=== PATIENT | male | born 1955 | race Caucasian/White ===

== ENCOUNTER 2018-08-31 10:08 | Day surgery (SDC) | payer MEDICARE, MEDICAID ==
[2018-08-31] VITALS (11 sets, daily range): BP systolic 110–130; BP diastolic 70–95
[~2018-08-31] VITALS: Ht 180.3 cm; Wt 160.2 kg
[~2018-08-31 10:08] MED LIST: APIX5TAB3 PO
[2018-08-31] MEDS ORDERED: MIDAZolam 5mg/ml 2ml vial IV ONE (10:25)
[2018-08-31] MEDS ORDERED: normal saline 1000ml 1,000 ML IV SCH (10:25)
[2018-08-31] MEDS ORDERED: fentaNYL/PF 50MCG/1 ML 2ML syringe IV ONE (10:25)
[2018-08-31 10:47] LABS: BASOPHILS % (AUTO) 0.2 % (0-1); EOSINOPHILS # (AUTO) 0.3 X10'3 (0-0.9); EOSINOPHILS % (AUTO) 4.3 % (0-6); HEMATOCRIT 41.5 % (42.0-52.0); HEMOGLOBIN 13.2 g/dl (14.0-17.9); LYMPHOCYTES # (AUTO) 1.1 X10'3 (1.1-4.8); LYMPHOCYTES % (AUTO) 15.6 % (21-51); MEAN CORPUSCULAR HEMOGLOBIN 27.4 PG (27.0-31.0); MEAN CORPUSCULAR HGB CONC 31.7 g/dL (33.0-36.5); MEAN CORPUSCULAR VOLUME 86.6 FL (78-98); MONOCYTES # (AUTO) 0.6 X10'3 (0-0.9); NEUTROPHILS % (AUTO) 71.9 % (42-75); PLATELET COUNT 195 X10'3 (140-440); RED CELL DISTRIBUTION WIDTH 16.5 % (11.5-14.5); WHITE BLOOD COUNT 6.9 X10'3 (4.5-11.0)
[2018-08-31 10:58] LABS: INR 1.1 INR
[2018-08-31 11:02] LABS: ALBUMIN 3.3 G/DL (3.4-5.0); ANION GAP 10 (8-16); BLOOD UREA NITROGEN 19 MG/DL (7-18); BUN/CREATININE RATIO 18.3 (5.4-32.0); CALCIUM 8.8 MG/DL (8.5-10.1); CHLORIDE 102 MMOL/L (99-107); CREATININE 1.04 MG/DL (0.60-1.10); GLUCOSE 144 MG/DL (70-104); MAGNESIUM 1.6 MG/DL (1.5-2.4); POTASSIUM 4.1 MMOL/L (3.5-5.1); SODIUM 141 MMOL/L (135-145); TOTAL CARBON DIOXIDE 28.8 MMOL/L (24-32); eGFR 73 ML/MIN
[2018-08-31] MEDS ORDERED: BOSE125T PO (11:27)
[2018-08-31] MEDS ORDERED: FLO0.4C PO (11:27)
[2018-08-31] MEDS ORDERED: METF500T PO (11:27)
[2018-08-31] MEDS ORDERED: DULO20CA50 PO (11:27)
[2018-08-31] MEDS ORDERED: ESCI5TAB PO (11:27)
[2018-08-31] MEDS ORDERED: SERT25TA PO (11:27)
[2018-08-31] MEDS ORDERED: POTA10TA19 PO (11:27)
[2018-08-31] MEDS ORDERED: SILD20TA PO (11:27)
[2018-08-31] MEDS ORDERED: FURO40TA4 PO (11:27)
[2018-08-31] MEDS ORDERED: HYDR12.5 PO (11:27)
[2018-08-31] MEDS ORDERED: ARIP5TAB4 PO (11:27)
[2018-08-31] MEDS ORDERED: DILT180C95 PO (11:27)
[2018-08-31] MEDS ORDERED: AMIO200T40 PO (11:27)
== END 2018-08-31 13:45 | disposition home or self-care (01) ==
LOC: SSTAY O 10:08
PROVIDERS: ATTEND Internal Medicine Cardiovascular Disease
DX: I48.1 Persistent atrial fibrillation (principal); I48.92 Unspecified atrial flutter; I27.20 Pulmonary hypertension, unspecified; I50.9 Heart failure, unspecified; F32.9 Major depressive disorder, single episode, unspecified; Z79.01 Long term (current) use of anticoagulants; Z79.899 Other long term (current) drug therapy; I11.0 Hypertensive heart disease with heart failure
CPT/HCPCS: 36415; 80048; 82948; 83735; 85025; 85610; 92960; 93005; J2250; J3010; J7030

== ENCOUNTER 2018-09-28 07:08 | Day surgery (SDC) | payer MEDICARE, MEDICAID ==
[~2018-09-28] VITALS: Ht 182.9 cm; Wt 158.7 kg
[2018-09-28] VITALS (17 sets, daily range): BP systolic 94–160; BP diastolic 53–96
[~2018-09-28 07:08] MED LIST changes: +AMIO200T40 PO; +ARIP5TAB4 PO; +BOSE125T PO; +DILT180C95 PO; +DULO20CA50 PO; +ESCI5TAB PO; +FLO0.4C PO; +FURO40TA4 PO; +HYDR12.5 PO; +METF500T PO; +POTA10TA19 PO; +SERT25TA PO; +SILD20TA PO
[2018-09-28] MEDS ORDERED: normal saline 1000ml 1,000 ML IV SCH (07:30)
[2018-09-28] MEDS ORDERED: fentaNYL/PF 50MCG/1 ML 2ML syringe IV ONE (07:30)
[2018-09-28] MEDS ORDERED: MIDAZolam 5mg/ml 2ml vial IV ONE (07:30)
[2018-09-28] MEDS ORDERED: AMIO100T4 PO (07:39)
[2018-09-28] MEDS ORDERED: ARIP5TAB4 PO (07:39)
[2018-09-28] MEDS ORDERED: METF1000 PO (07:39)
[2018-09-28] MEDS ORDERED: ALB0.5UD IH (07:39)
[2018-09-28 08:00] LABS: ALBUMIN 3.5 G/DL (3.4-5.0); ANION GAP 7 (8-16); BLOOD UREA NITROGEN 21 MG/DL (7-18); BUN/CREATININE RATIO 24.7 (5.4-32.0); CALCIUM 9.2 MG/DL (8.5-10.1); CHLORIDE 102 MMOL/L (99-107); CREATININE 0.85 MG/DL (0.60-1.10); GLUCOSE 160 MG/DL (70-104); MAGNESIUM 1.8 MG/DL (1.5-2.4); POTASSIUM 4.1 MMOL/L (3.5-5.1); SODIUM 138 MMOL/L (135-145); TOTAL CARBON DIOXIDE 29.4 MMOL/L (24-32); eGFR > 90 ML/MIN
[2018-09-28 08:15] LABS: PROTHROMBIN TIME 10.5 SECONDS (9.0-12.0)
[2018-09-28 08:25] LABS: BASOPHILS % (AUTO) 0.6 % (0-1); EOSINOPHILS # (AUTO) 0.2 X10'3 (0-0.9); EOSINOPHILS % (AUTO) 2.7 % (0-6); HEMATOCRIT 43.2 % (42.0-52.0); HEMOGLOBIN 13.4 g/dl (14.0-17.9); LYMPHOCYTES # (AUTO) 1.1 X10'3 (1.1-4.8); LYMPHOCYTES % (AUTO) 16.8 % (21-51); MEAN CORPUSCULAR HEMOGLOBIN 26.9 PG (27.0-31.0); MEAN CORPUSCULAR HGB CONC 31.1 g/dL (33.0-36.5); MEAN CORPUSCULAR VOLUME 86.4 FL (78-98); MEAN PLATELET VOLUME 10.4 FL (7.4-10.4); MONOCYTES # (AUTO) 0.5 X10'3 (0-0.9); MONOCYTES % (AUTO) 7.4 % (2-12); NEUTROPHILS # (AUTO) 4.9 X10'3 (1.8-7.7); NEUTROPHILS % (AUTO) 72.5 % (42-75); PLATELET COUNT 202 X10'3 (140-440); WHITE BLOOD COUNT 6.7 X10'3 (4.5-11.0)
== END 2018-09-28 10:25 | disposition home or self-care (01) ==
LOC: SSTAY O 07:08
PROVIDERS: ATTEND Internal Medicine Cardiovascular Disease
DX: I48.92 Unspecified atrial flutter (principal); Z79.899 Other long term (current) drug therapy
CPT/HCPCS: 36415; 80048; 82948; 83735; 85025; 85610; 92960; 93005; J2250; J3010; J7030

== ENCOUNTER 2020-02-14 10:28 | Day surgery (SDC) | payer BC, OTHER ==
[2020-02-14] VITALS (11 sets, daily range): BP systolic 113–162; BP diastolic 61–111
[~2020-02-14] VITALS: Ht 177.8 cm; Wt 156.3 kg
[~2020-02-14 10:28] MED LIST changes: +ALB0.5UD IH; +AMIO100T4 PO; -AMIO200T40 PO; +ARIP5TAB14 PO; -ARIP5TAB4 PO; +DILT-36 PO; -DILT180C95 PO; +METF1000 PO; -METF500T PO
[2020-02-14] MEDS ORDERED: DILT120T14 PO (11:02)
[2020-02-14] MEDS ORDERED: DULA1.5P IM (11:02)
[2020-02-14 11:52] LABS: BASOPHILS % (AUTO) 0.6 % (0-1); EOSINOPHILS # (AUTO) 0.1 X10'3 (0-0.9); EOSINOPHILS % (AUTO) 0.9 % (0-6); HEMATOCRIT 41.4 % (42.0-52.0); HEMOGLOBIN 13.1 g/dl (14.0-17.9); LYMPHOCYTES # (AUTO) 1.1 X10'3 (1.1-4.8); LYMPHOCYTES % (AUTO) 13.1 % (21-51); MEAN CORPUSCULAR HEMOGLOBIN 27.4 PG (27.0-31.0); MEAN CORPUSCULAR HGB CONC 31.8 g/dL (33.0-36.5); MEAN CORPUSCULAR VOLUME 86.2 FL (78-98); MEAN PLATELET VOLUME 10.5 FL (7.4-10.4); MONOCYTES # (AUTO) 0.6 X10'3 (0-0.9); MONOCYTES % (AUTO) 7.8 % (2-12); NEUTROPHILS # (AUTO) 6.3 X10'3 (1.8-7.7); NEUTROPHILS % (AUTO) 77.6 % (42-75); PLATELET COUNT 199 X10'3 (140-440); RED CELL DISTRIBUTION WIDTH 15.8 % (11.5-14.5); WHITE BLOOD COUNT 8.1 X10'3 (4.5-11.0)
[2020-02-14 11:55] LABS: ALBUMIN 3.3 G/DL (3.4-5.0); ANION GAP 6 (8-16); BLOOD UREA NITROGEN 24 MG/DL (7-18); BUN/CREATININE RATIO 23.1 (5.4-32.0); CALCIUM 8.9 MG/DL (8.5-10.1); CHLORIDE 101 MMOL/L (99-107); CREATININE 1.04 MG/DL (0.60-1.10); GLUCOSE 185 MG/DL (70-104); SODIUM 136 MMOL/L (135-145); TOTAL CARBON DIOXIDE 29.1 MMOL/L (24-32); eGFR 72 ML/MIN
[2020-02-14] MEDS ORDERED: normal saline 1,000 ML IV SCH (12:20)
[2020-02-14] MEDS ORDERED: diphenhydrAMINE 25mg capsule PO PRN (12:20)
[2020-02-14] MEDS ORDERED: midazolam 2 mg/2 ml injection ONE ×3 (13:22→14:21)
[2020-02-14] MEDS ORDERED: fentaNYL/PF 50MCG/1 ML 2ML syringe ONE ×2 (13:22→13:52)
[2020-02-14] MEDS ORDERED: iohexol 350MG/ML 100ml bottle IV ONE (13:22)
[2020-02-14] MEDS ORDERED: iohexol 350 MG/ML 50ML vial IV ONE (13:22)
[2020-02-14] MEDS ORDERED: heparin 1,000unit/ml 10ml vial 10 ML ONE (13:22)
[2020-02-14] MEDS ORDERED: LIDOcaine 1% (10mg/ml)w/preservative injection 20ml MDV ONE (13:22)
[2020-02-14] MEDS ORDERED: furosemide 40mg/4ml inj IV ONE (15:00)
[2020-02-14] MEDS ORDERED: proCHLORperazine 10 MG/2 ml inj IV PRN (15:05)
[2020-02-14] MEDS ORDERED: ondansetron/PF 4mg/2ml inj IV PRN (15:05)
== END 2020-02-14 19:00 | disposition home or self-care (01) ==
LOC: SSTAY O 10:28
PROVIDERS: ATTEND Internal Medicine Cardiovascular Disease
DX: R06.09 Other forms of dyspnea (principal); I25.10 Atherosclerotic heart disease of native coronary artery without angina pectoris; G47.33 Obstructive sleep apnea (adult) (pediatric); I27.20 Pulmonary hypertension, unspecified; I48.91 Unspecified atrial fibrillation; I48.92 Unspecified atrial flutter; I10 Essential (primary) hypertension; E78.5 Hyperlipidemia, unspecified; E11.9 Type 2 diabetes mellitus without complications; E66.01 Morbid (severe) obesity due to excess calories; Z68.42 Body mass index [BMI] 45.0-49.9, adult; Z79.899 Other long term (current) drug therapy
CPT/HCPCS: 80048; 82948; 83735; 85025; 85610; 93005; 93460; 99152; 99153; C1760; C1769; C1894; J1644; J1940; J2001; J2250; J3010; J7030; Q9967; A4620; A6258; C1751